=== PATIENT | female | born 1940 | race African-American/Black ===

== ENCOUNTER 2018-01-16 10:47 | Outpatient (CLI) | payer MEDICARE, BC ==
[2018-01-16] MEDS ORDERED: ISOVUE-370 76%-LOCM 1 ML ONE (13:13)
== END 2018-01-16 10:48 | disposition home or self-care (01) ==
LOC: BICCT 10:47
PROVIDERS: ATTEND Internal Medicine
DX: R13.10 Dysphagia, unspecified (principal); R07.89 Other chest pain; Z85.818 Personal history of malignant neoplasm of other sites of lip, oral cavity, and pharynx
CPT/HCPCS: 70491

== ENCOUNTER 2020-09-06 13:48 | Emergency (ER) | payer MEDICARE, BC ==
[2020-09-06] MEDS ORDERED: Sterile Water 10 ML VIAL IVP SCH (15:00)
[2020-09-06] MEDS ORDERED: Activase 2 MG VIAL CATH SCH (15:00)
[2020-09-06 15:08] LABS: #Eosinphils 0.1 thou/uL (0.0-0.7); #Lymphocytes 1.4 thou/uL (1.20-3.40); #Monocytes 0.5 thou/uL (0.11-0.59); #Neutrophils 3.9 thou/uL (1.40-6.50); %Basophils 0.4 % (0.0-1.0); %Eosinophils 1.3 % (0.0-10.0); %Lymphocytes 23.8 % (21.0-51.0); %Monocytes 8.5 % (0.0-10.0); Hemoglobin 12.4 g/dL (12.0-16.0); Mean Corpuscular HGB CONC 31.7 g/dL (32.0-36.0); Mean Corpuscular Hemoglobin 26.6 pg (27.0-31.0); Mean Corpuscular Volume 83.8 fL (78.0-98.0); Mean Platelet Volume 10.6 fL (7.4-10.4); Platelet Count 247 thou/uL (130-400); RBC Distribution Width 18.5 % (11.5-14.5); Red Blood Cell (RBC) Count 4.66 mill/uL (4.20-5.40); White Blood Cell (WBC) Count 5.9 thou/uL (4.8-10.8)
--- NOTE | 2020-09-06 15:11 | RAD ---
Exam: Chest one view HISTORY:Sepsis. PICC line does not flush today. COVID positive patient. Comparison: 07/10/2008 FINDINGS: Cardiac silhouette:Cardiomegaly Aorta: Unremarkable Pulmonary vessels: Normal Costophrenic angles: There are bilateral, left greater than right, pleural effusions. LUNGS: Scattered interstitial and alveolar opacities. Possible cavitation in the right midlung. Pneumothorax: None Osseous abnormalities: Diffuse bony mineralization Additional findings: Stable metallic shrapnel. Lines and tubes: There is a right-sided PICC line with the distal tip projecting over the expected re gion of the superior vena cava. IMPRESSION: 1. Multifocal opacities compatible with patient's history of COVID pneumonia. There are bilateral ple ural effusions. 2. Possible cavitation in the right midlung. 3. Right-sided PICC line as described above.
[2020-09-06 15:41] LABS: ALT (SGPT) 20 U/L (8-55); AST (SGOT) 29 U/L (5-34); Albumin 2.8 g/dL (3.4-4.8); Alkaline Phosphatase 59 U/L (40-110); Anion Gap 11 mmol/L (10-20); BUN (Urea Nitrogen) 8 mg/dL (9.8-20.1); Bilirubin, Total 0.2 mg/dL (0.2-1.2); Calc. Creatinine Clearance 0 mL/min (70-130); Calcium 8.7 mg/dL (7.8-10.44); Carbon Dioxide 33 mmol/L (23-31); Chloride 95 mmol/L (98-107); Estimated GFR-MDRD Greater than 90; Globulin 4.2 g/dL (2.4-3.5); Glucose 97 mg/dL (83-110); Lipase 21 U/L (8-78); Potassium 3.2 mmol/L (3.5-5.1); Sodium 136 mmol/L (136-145)
[2020-09-06] MEDS ORDERED: cefTRIAXone\\ROCEPHIN 1 GM VIAL ONE (16:43)
[2020-09-06] MEDS ORDERED: Dexamethasone 4 mg/ml Vial ONE (16:43)
[2020-09-06] MEDS ORDERED: Vancomycin 1 GM/200 ML BAG ONE (16:43)
== END 2020-09-06 20:20 ==
LOC: ERS 13:48
DX: U07.1 COVID-19 (principal); J44.0 Chronic obstructive pulmonary disease with (acute) lower respiratory infection; J12.89 Other viral pneumonia; R09.02 Hypoxemia; J44.9 Chronic obstructive pulmonary disease, unspecified; I10 Essential (primary) hypertension; Z85.21 Personal history of malignant neoplasm of larynx; Z79.82 Long term (current) use of aspirin; Z79.899 Other long term (current) drug therapy
CPT/HCPCS: 71045; 80053; 83605; 83690; 83880; 84484; 85025; 87040; 93005; 96374; 99285; J2997; 36415; J0696; J1100; J3370